=== PATIENT | female | born 1970 | race Caucasian/White ===

== ENCOUNTER 2021-06-18 06:07 | Day surgery (SDC) | payer OTHER ==
--- NOTE | 2021-06-14 12:21 | RAD REPORT ---
EXAM DESCRIPTION: RAD - Chest Pa And Lat (2 Views) - 06/14/2021 12:16 pm CLINICAL HISTORY: PREOP, SAME DAY SURGERY COMPARISON: No comparisons FINDINGS: Lines: None. Lungs: No evidence of edema or pneumonia. Pleural: No significant pleural effusions or pneumothorax. Cardiac: The heart size is within normal limits. Bones: No acute fractures. Other: IMPRESSION: No acute cardiopulmonary disease.
[2021-06-14 12:37] LABS: Basophils % 1.2 % (0-1.3); Hematocrit 39.4 % (36.0-45.0); Lymphocytes % 24.9 % (15.3-44.8); MPV 6.4 fL (7.6-11.3); RBC Red Blood Cell Count 4.63 M/uL (3.86-4.86)
[2021-06-14 12:38] LABS: Protime INR 1.06
[2021-06-14 12:45] LABS: Potassium 3.8 mmol/L (3.5-5.1)
[2021-06-18] MEDS ORDERED: CEFAZOLIN/NS 1gm 1 GM/50 ML BAG ONE (06:21)
[2021-06-18] MEDS ORDERED: NA CHLORIDE 0.9% 1,000 ML ONE ×2 (06:21→09:05)
[2021-06-18] MEDS ORDERED: dexAMETHasone 10 MG/ML VIAL ONE ×2 (06:26→08:38)
[2021-06-18] MEDS ORDERED: EPINEPHRINE/PF 1 MG/ML AMP ONE (06:26)
[2021-06-18] MEDS ORDERED: ROCURONIUM 50 MG/5 ML VIAL IV ONE (06:26)
[2021-06-18] MEDS ORDERED: LIDOCAINE 2% MPF 5 ML VIAL ONE (06:26)
[2021-06-18] MEDS ORDERED: propofoL 200 MG/20 ML VIAL IV ONE (06:26)
[2021-06-18] MEDS ORDERED: KETOROLAC 30 MG/ML INJ ONE (06:26)
[2021-06-18] MEDS ORDERED: ONDANSETRON 4 MG/2 ML VIAL ONE ×2 (06:28→10:52)
[2021-06-18] MEDS ORDERED: NS 0.9% VIAL 10 ML ONE ×2 (08:38→08:42)
[2021-06-18] MEDS ORDERED: ROPLVACAINE HCL 40 ML ONE (08:38)
[2021-06-18] MEDS ORDERED: LIDOCAINE 1% MPF 5 ML VIAL ONE (08:38)
[2021-06-18] MEDS ORDERED: MIDAZOLAM HCL 2 MG/2 ML INJ ONE (08:38)
[2021-06-18] MEDS ORDERED: FENTANYL CITR 100 MCG/2 ML ONE (08:38)
[2021-06-18] MEDS ORDERED: Phenylephrine HCl 10 MG/ML 1 ML VIAL ONE (08:42)
[2021-06-18] MEDS ORDERED: GLYCOPYRROLATE 0.2 MG/ML SYR ONE (09:19)
[2021-06-18] MEDS ORDERED: NEOSTIGMINE 1 MG/ML -5 ML ONE (09:19)
--- NOTE | 2021-06-18 09:48 | P.BOP ---
Preoperative diagnosis: left shoulder adhesive capsulitis, rotator cuff tear, impingement syndrome Postoperative diagnosis: same Primary procedure: left shoulder arthroscopic rotator cuff repair, subacromial decompression Secondary procedure: left shoulder manipulation of anesthesia Other procedure(s): left shoulder arthroscopic lysis of adhesions Estimated blood loss: 5 cc Specimen: none Findings: see dictation Anesthesia: General Complications: None Implants: suture tape with 4.75 mm Arthrex swivelock Fluids & blood products: per anesthesia record Transferred to: Recovery Room Condition: Good
--- NOTE | 2021-06-18 10:41 | RAD REPORT ---
EXAM DESCRIPTION: RAD - Shoulder 1 View - 06/18/2021 10:30 am CLINICAL HISTORY: s/p rotator cuff repair COMPARISON: Shoulder Left Wo Cont dated 05/04/2021 FINDINGS/IMPRESSION: Single view submitted following rotator cuff repair. No dislocation is apparent . No fracture is seen.
[2021-06-18] MEDS ORDERED: HYDROCODONE/APAP 7.5/325 MG TAB ONE (10:44)
[2021-06-18 11:06] VITALS: BP 124/70; TEMP 96.8; O2SAT 100
--- NOTE | 2021-06-19 04:32 | OP ---
Date of Procedure: 06/18/2021 Surgeon: John Zaragoza MD Preoperative Diagnoses: 1.Left shoulder adhesive capsulitis. 2.Left shoulder rotator cuff tear. 3.Left shoulder impingement syndrome. Postoperative Diagnoses: 1.Left shoulder adhesive capsulitis. 2.Left shoulder rotator cuff tear. 3.Left shoulder impingement syndrome. Procedures Performed: 1.Left shoulder arthroscopic rotator cuff repair. 2.Left shoulder manipulation under anesthesia with lysis of adhesions. 3.Left shoulder arthroscopic lysis of adhesions. 4.Left shoulder arthroscopic subacromial decompression. Anesthesia: General endotracheal. Fluids: Per Anesthesia record. Estimated Blood Loss: 5 cc. Implants: One 4.75 mm Arthrex SwiveLock and one FiberTape. Indication For Procedure: Gregg is a 50-year-old female presented to my clinic with signs and symp toms, as well as MRI findings consistent with adhesive capsulitis and a full-thickness rotator cuff t ear. The patient failed conservative treatment measures including corticosteroid injection, as well as home exercise program. I discussed with the patient at length, risks and benefits associated with operative and nonoperative treatment. Given her full-thickness tear as well as her failure of conse rvative treatment. We did elect to proceed with operative treatment. Description Of Procedure: After informed consent was obtained, the patient was identified in the pre operative holding area. The left upper extremity was marked. The patient was brought back to the [facility] where she given an interscalene block performed by Anesthesia to the left upper extremity. She wa s then taken back to the operating room, transferred to the operating table in supine fashion and quita daniel under general endotracheal anesthesia. She was then placed in the beach chair position with her extremities well padded. The left upper extremity was then examined, the patient had forward flexion and abduction to 90 degrees. Gentle manipulation under anesthesia was then performed by stabilizing the scapula with my left hand and gently manipulating the right upper extremity by grabbing just pro ximal to the elbow and again with forward flexion followed by abduction and external rotation. Prior to the manipulation, her range of motion was 90 degrees of forward flexion and abduction as well as 30 degrees of external rotation of manipulation. She was able to get to 130 degrees of forward flexi on as well as abduction as well as 50 degrees of external rotation. The left upper extremity was the n prepped and draped in usual sterile fashion. A time-out was initiated. Again, procedure were conf irmed and identified the patient; however, had received preoperative prophylactic antibiotics. A spi nal needle was then introduced into the glenohumeral joint via the posterior portal position and then joint was injected with 30 cc of normal saline to distend the capsule. A stab incision was made pos teriorly to create a posterior portal. Under direct visualization, an anterior portal and anterior c annula were placed. The patient was noted to have no significant chondromalacia changes noted to the glenoid surface or half humeral head. There was no significant anterior-posterior labral tear. The re was no SLAP tear noted. The biceps tendon anchor was also found to be devoid of any significant t ear and fraying. The patient was noted to have definitely a tight joint. Using the anterior portal and cannula, a rotator interval was then debrided using an arthroscopic shaver as well as the radiofr equency ablator. Anterior inferior capsule was then released using a radiofrequency ablator as well as arthroscopic shaver. It was definitely noted to be from expansion of the joint after these releas es were completed. Undersurface of the rotator cuff was found to be some fraying anteriorly, which w as debrided using the arthroscopic shaver. The arthroscope was then brought up to the bursal surface . The subacromial bursectomy was performed. A full-thickness anterior rotator cuff tear was noted. There was some fraying of the coracoacromial ligament also noted. A FiberTape was then used and pas sed in an inverted horizontal mattress fashion within the anterior rotator cuff tear and reduced the greater tuberosity, which had been debrided to bleeding bony bed. A single 4.75 mm Arthrex SwiveLock was then used to help reduce the rotator cuff tear and fix it anteriorly. The remaining suture was then tucked. Given the fraying of the coracoacromial ligament, a subacromial decompression was perfo rmed by performing an acromioplasty using arthroscopic terrell and using a radiofrequency ablator to aline ride the undersurface of the acromion. The arthroscopic instruments were then removed without compli cation. The wounds were then irrigated with normal saline. Portals were approximated using a 3-0 Mo nocryl. Sterile dressings were applied. Patient was placed in a shoulder immobilizer, awakened, and transferred to PACU in stable condition. Postoperative Plan: She will begin physical therapy 1 to 2 weeks per medium rotator cuff repair prot ocol. CV/MODL Voice ID: [id number] Report ID: [id number]
== END 2021-06-18 11:34 | disposition home or self-care (01) ==
LOC: OR 06:07
PROVIDERS: ATTEND Orthopaedic Surgery Sports Medicine
PROC: 0LM24ZZ Reattachment of Left Shoulder Tendon, Percutaneous Endoscopic Approach (ICD-10-PCS; 2021-06-18)
PROC: 0RNK4ZZ Release Left Shoulder Joint, Percutaneous Endoscopic Approach (ICD-10-PCS; principal; 2021-06-18 07:30)
DX: M75.02 Adhesive capsulitis of left shoulder (principal); M75.122 Complete rotator cuff tear or rupture of left shoulder, not specified as traumatic; M75.22 Bicipital tendinitis, left shoulder; M75.42 Impingement syndrome of left shoulder; M25.512 Pain in left shoulder; Z20.822 Contact with and (suspected) exposure to COVID-19
CPT/HCPCS: 93005; 85025; 80048; 36415; 85610; 82947; 85730; 71046; 73020; 29826; 29827; U0002; J2704; J0171; J2370; J2250; J3010; J1100 ×2; J2795; J2710; J0690; J7030 ×2; J2405 ×2

== ENCOUNTER 2021-07-08 07:06 | Day surgery (SDC) | payer OTHER ==
[2021-07-06 10:39] LABS: Absolute Lymphocytes (CBC) 1.4 K/uL (0.7-4.9); Basophils % 1.2 % (0-1.3); Hematocrit 38.4 % (36.0-45.0); Lymphocytes % 21.8 % (15.3-44.8); MPV 6.3 fL (7.6-11.3); RBC Red Blood Cell Count 4.48 M/uL (3.86-4.86)
[2021-07-06 10:42] LABS: Urine Appearance CLEAR (Clear); Urine Bilirubin NEGATIVE (Negative); Urine Blood TRACE (Negative); Urine Color YELLOW (Yellow); Urine Glucose NEGATIVE (Negative); Urine Protein NEGATIVE (Negative); Urine Urobilinogen 0.2 mg/dL (0.2-1.0); Urine pH 5.5 (5.0-7.0)
[2021-07-06 10:49] LABS: Urine Microscopic Reflex NO UMIC
[2021-07-06 11:00] LABS: Protime INR 0.94
[2021-07-08] MEDS ORDERED: MIDAZOLAM HCL 2 MG/2 ML INJ ONE (07:21)
[2021-07-08] MEDS ORDERED: FENTANYL CITR 250 MCG/5 ML ONE ×2 (07:21→11:20)
[2021-07-08] MEDS ORDERED: NS 0.9% VIAL 10 ML ONE (07:21)
[2021-07-08] MEDS ORDERED: ONDANSETRON 4 MG/2 ML VIAL ONE ×2 (07:21→14:17)
[2021-07-08] MEDS ORDERED: dexAMETHasone 10 MG/ML VIAL ONE (07:21)
[2021-07-08] MEDS ORDERED: propofoL 200 MG/20 ML VIAL IV ONE (07:21)
[2021-07-08] MEDS ORDERED: KETAMINE HCL 500 MG/5 ML VIAL ONE (07:21)
[2021-07-08] MEDS ORDERED: LIDOCAINE 2% MPF 5 ML VIAL ONE (07:21)
[2021-07-08] MEDS ORDERED: ROCURONIUM 50 MG/5 ML VIAL IV ONE (07:21)
[2021-07-08] MEDS ORDERED: SCOPOLAMINE HYDROBROMIDE PATCH TD ONE ×2 (07:30→07:45)
[2021-07-08] MEDS ORDERED: ACETAMINOPHEN 500 MG TAB ONE (08:00)
[2021-07-08] MEDS ORDERED: CELECOXIB 100 MG CAPSULE PO ONE (08:00)
[2021-07-08] MEDS ORDERED: CELECOXIB 100 MG CAPSULE ONE (08:00)
[2021-07-08] MEDS ORDERED: ACETAMINOPHEN 500 MG TAB PO ONE (08:00)
[2021-07-08] MEDS: CEFAZOLIN/SWI 2gm 2 GM/20 ML SYR ONE ×2 (08:11→08:45)
[2021-07-08] MEDS ORDERED: BUPIVACAINE 0.25% PF 10 ML VIAL ONE (08:19)
[2021-07-08] MEDS ORDERED: NA CHLORIDE 0.9% 100 ML IV ONE (08:19)
[2021-07-08] MEDS ORDERED: VASOPRESSIN 20 UNIT/ML VIAL ONE (08:20)
[2021-07-08] MEDS ORDERED: BUPIVACAINE 0.5% Inj,MDV 50 mL VIAL ONE (08:20)
[2021-07-08] MEDS ORDERED: EPHEDRINE SULF 50 MG/ML VIAL ONE (08:50)
[2021-07-08] MEDS: BUPIVACAINE 0.25% PF 10 ML VIAL ONE ×2 (09:30→12:22)
[2021-07-08] MEDS ORDERED: NA CHLORIDE 0.9% 1,000 ML ONE ×2 (09:43→12:10)
[2021-07-08] MEDS: NA CHLORIDE 0.9% 1,000 ML ONE ×2 (09:43→09:50)
[2021-07-08] MEDS ORDERED: CEFAZOLIN SODIUM 1 GM/VIAL ONE (10:27)
[2021-07-08] MEDS ORDERED: HOME MED 1 EA UNK (Estradiol [Estradiol] 42.5 GM Cream.Appl) VG SCH (13:30)
[2021-07-08] MEDS ORDERED: MEPERIDINE HCL 25 MG/ML SYR IM PRN (13:30)
[2021-07-08] MEDS ORDERED: HYDROCODONE/APAP 5/325 MG TAB PO PRN (13:30)
[2021-07-08] MEDS ORDERED: PROMETHAZINE INJ 25 MG/ML AMP IV PRN (13:30)
[2021-07-08] MEDS ORDERED: IBUPROFEN 200 MG TAB PO PRN (13:30)
--- NOTE | 2021-07-08 13:38 | P.BOP ---
Preoperative diagnosis: anterior, vault and posterior wall prolapse stage 2, SERAFIN Postoperative diagnosis: same Primary procedure: Lapsc BSO, MUS-TO cysto, USLS colpopexy,post repair perienorrhaphy Secondary procedure: JULIAN sigmoid Supervisor Mixing: PANFILO BUCKLEY Estimated blood loss: 100, UO 300 Specimen: bilateral tubes and ovaries Findings: sigmoid+bladder adhesions, goretex x2,PDS x2,one on each USL Anesthesia: General Complications: None Drain(s): Urinary catheter Implants: TVT-O Transferred to: Recovery Room Condition: Good
[2021-07-08] MEDS: HYDROMORPHONE HCL 1 MG/ML INJ ONE ×2 (14:00→14:07)
[2021-07-08] MEDS ORDERED: KETOROLAC 30 MG/ML INJ IV ONE (14:14)
[2021-07-08] MEDS ORDERED: KETOROLAC 30 MG/ML INJ ONE (14:16)
[2021-07-08 15:00] VITALS: TEMP 97.1; O2SAT 99
[2021-07-08] MEDS ORDERED: HYDROCODONE/APAP 5/325 MG TAB ONE (16:04)
[2021-07-08 16:43] VITALS: BP 124/64
[2021-07-08] MEDS ORDERED: HOME MED 1 EA UNK (Fluticasone/Salmeterol [Advair Hfa 115-21 Mcg Inhaler] 12 GM Hfa.Aer.Ad IH SCH (21:00)
[2021-07-09] MEDS ORDERED: lisinopriL 10 MG TAB PO SCH (09:00)
[2021-07-09] MEDS ORDERED: MONTELUKAST 10 MG TAB PO SCH (09:00)
[2021-07-09] MEDS ORDERED: HOME MED 1 EA UNK (Cholecalciferol (Vitamin D3) [Vitamin D3] 1,000 UNIT Capsule) PO SCH (09:00)
[2021-07-09] MEDS ORDERED: ESCITALOPRAM 20 MG TAB PO SCH (09:00)
--- NOTE | 2021-07-12 11:33 | OP ---
Date of Procedure: 07/08/2021 Surgeon: Char Valdez MD Communications Manager: Sharla Heaton. Preoperative Diagnoses: Anterior wall to posterior wall prolapse stage II and stress urinary inconti nence and adhesions of the omentum to the anterior abdominal wall, and sigmoid colon to both lateral jay as well as the vaginal cuff. Postoperative Diagnoses: Anterior wall to posterior wall prolapse stage II and stress urinary incont inence and adhesions of the omentum to the anterior abdominal wall, and sigmoid colon to both lateral jay as well as the vaginal cuff. Procedures Performed: Laparoscopy, bilateral salpingo-oophorectomy, uterosacral ligament colpopexy, lysis of adhesions of the anterior abdominal wall and omentum and mid urethral sling posterior repair , perineorrhaphy, posterior repair with site-specific defect repair and cystoscopy. Ebl: 100. Urine Output: 300. Anesthesia: General endotracheal. Specimens: Bilateral tubes and ovaries. Complications: No complications. Drains: Mcdaniels catheter to be removed in 2 hours. Implants: TVTO. Disposition: Recovery room. Specimens: Bilateral tubes and ovaries. Findings: Sigmoid and bladder adhesions were seen. Sigmoid to the lateral jay on the cuff, bladde r adhesions as well. Round ligaments were stitched to the top of the fundus good extent and the way that repair was done there were 2 Table Rock-Davy sutures placed on the distal uterosacral to the lateral mo st aspect of the cuff and then more proximal uterosacral suspension stitch with attached t o the vaginal cuff medial to the prior stitch. Two sutures on each side were done. No need for any culdoplasty. Posterior repair was done in a site-specific fashion and sling was placed without problems and cystos copy was negative. The strong jets of urine from both ureteric orifices. Indications: The patient presented with significant prolapse symptoms and mixed incontinence. After full evaluation as an outpatient, she declined any surgical management, any pessary management, want ed surgical management. Discussed all the options including sacropexy, laparoscopic uterosacral liga ment suspension colpopexy, vaginal colpopexy if sacrospinous colpopexy is not feasible. The patient fully understood the process, understood the removal of ovaries and tubes as well as . Procedure In Detail: The patient was consented and taken back to OR. 2 g of Ancef were given. SCDs were placed and placed in supine fashion on the operative table. General anesthesia was given. Perla daniel in a dorsal lithotomy position using Matthew stirrups and arms tucked by the side. Abdomen, vulva, vagina and perineum prepped and draped in a sterile fashion. Mcdaniels was placed to drain the bladder and sponge on a stick was placed in the vagina. 1 cm infraumbilical incision was made with a scalpel using the open laparoscopy technique. Fascia wa s incised, tagged, peritoneum entered sharply and Sofia introduced without any problems. After adeq uate insufflation, upper abdominal surfaces were unremarkable. Lower abdominal surface with adhesion s as described above. Plan was to perform the lysis of adhesions and take the tubes and ovaries out, and did the colpopexy. On visualization with the help of a Sizer, there was excellent opportunity t o visualize both uterosacral ligaments and seemed to have good traction, so sutures were t o be placed. Omental adhesions were taken down from the side wall cuff carefully preserving the lateral wall sugge sting pericolonic fat down. This took about 30 minutes. The broad ligament was opened lateral to the IP. IP was then and cut. Then dissection was carried to remove rest of the ovary to the side attachment first on the left and then on the right. Once all these were excellent and hemostatic, the attention was directed to developing bladder plane . The peritoneum was incised. Then, the bladder was dissected superiorly at least 3 cm above the ve sicovaginal space, pushing the bladder up and the vagina down through the avascular. Once this was d one, then laterally all the incisions were removed with the help of sharp scissors and posteriorly si milar dissection was attempted to perform, but there was very adherent peritoneum, so plan to start w ith her uterosacral sutures. 3-0 Monocryl was placed as stay sutures. Stay suture on the distal uterosacral to make it more promi nent. Then, Table Rock-Davy suture on suture needle was taken and passed from medial to lateral, lateral to medial and then posterior cuff. The posterior vaginal wall and the anterior fascia of the anterior vaginal wall. Once the Table Rock-Davy suture on the left most end was placed, then the PDS suture was plac ed more proximally to the prior stitch and then placed through the same layer. Similar dissection wa s performed on the right side as well without any problem ureter. Once these were both pe rformed and all the sutures were tied down systematically, pelvic assessment was performed to look fo r prolapse and prolapse was completely resolved on the anterior compartment. Once this was done, perla n was to do a cystoscopy. 17-Israeli sheath, 30-degree lens, normal saline were used. Excellent jets of urine from b oth ureteric orifices. No evidence of any trauma to the bladder. Entire bladder was examined. Area above the dome, trigone and lateral jay were all visualized. Left bladder was drained and Mcdaniels was replaced. Next, the trocars were removed under direct vision after thorough irrigation and suction was performed. Umbilical fascia incision was closed with the h elp of 3-0 Vicryl, tag sutures tied to each other and simple 0 Vicryl stitch in the suprapubic area. Then, all trocars were removed without any problems. Incision was closed with 3-0 chromic in an int errupted fashion. Then attention was directed to the sling. Mid urethral area was picked up with 2 Allis clamps, injec presley with dilute vasopressin. A 1 cm incision was made in the mid urethral area. Then, the tract was created at 40 degrees angle to the horizontal and vertical planes hugging the inferior pubic ramus a nd entering the obturator fascia, then pulling back to expand the tract. Both sides were done in a s imilar way. Then finger was placed and the plastic sheath was guided. After both the plastic sheath s were placed and the spikes exited at the point marked as per instructions, then plastic sheaths wer e cut out, mesh was tensioned in the mid urethral area with the help of Metzenbaum scissors. Once th e sheaths were pulled out, there was adequate tensioning. Thorough irrigation and suction loose and not too tight. After thorough irrigation with antibiotic solution, incision was closed with the help of continuous r unning 3-0 Vicryl. No exposure. No palpable mesh. The adductor tendon was not affected on both sides and skin glue was placed. After assessment of the posterior wall, there was a very visible site-specific defect on the right di stal lateral wall, so plan was to denude the epithelium in the lower 1/2 in the bishop-shaped fashio n and then raised the flaps to dissect out the connective tissue layer and fine both disrupted ends a nd were sutured together. Dilute vasopressin was injected and bishop-shaped incision was made with the help of scalpel and epi thelium excised. Then flaps were raised on both sides on its superior and inferior aspects above and almost to the cuff about 3 more centimeters. Then laterally dissection was performed to open up the lateral attachments, and once this was done, the site specific defect was seen. The perineum was al so opened up and deepithelialized and the muscles were also cut and exposed so that they c ould be reattached. Once this was done, 2-0 PDS was used to continuously run in a downward fashion on the fascia reattach ing to the lateral attachment, and once I came at the perineal body, 2-0 Vicryl sutures were placed. The stitch was attached to the perineal body and ran back up and cut . Then, 0.5 cm of vaginal epithelial entering was done and closure with 2-0 Vicryl was done. Then, at the perineum a bishpo-shaped incision was made after dilute vasopressin was injected. The perine al body was dissected laterally. I had posterior connective tissue with the perineal body . Therefore, this was accomplished with interrupted 2-0 Vicryl sutures x3 and the epithelium was bro ught back together with the help of a continuous running 3-0 Vicryl in a subcutaneous and then subcut icular fashion to close. Rectal exam negative. No foreign body or injury to the rectum. Instrument , needle, and sponge counts were correct. Mcdaniels was left in place for a voiding trial in 2 hours. T he patient was recovered from anesthesia and taken to PACU in stable condition. Ebl: 100. Urine Output: 1. Cystoscopy was performed at the sling and no evidence of any perforation of the mesh. SK/MODL Voice ID: [id number] Report ID: [id number]
== END 2021-07-08 16:30 | disposition home or self-care (01) ==
LOC: OR 07:06
PROVIDERS: ATTEND Obstetrics & Gynecology
PROC: 0UT74ZZ Resection of Bilateral Fallopian Tubes, Percutaneous Endoscopic Approach (ICD-10-PCS; 2021-07-08)
PROC: 0JQC0ZZ Repair Pelvic Region Subcutaneous Tissue and Fascia, Open Approach (ICD-10-PCS; 2021-07-08)
PROC: 0JQC0ZZ Repair Pelvic Region Subcutaneous Tissue and Fascia, Open Approach (ICD-10-PCS; 2021-07-08)
PROC: 0HQ9XZZ Repair Perineum Skin, External Approach (ICD-10-PCS; 2021-07-08)
PROC: 0DNU4ZZ Release Omentum, Percutaneous Endoscopic Approach (ICD-10-PCS; 2021-07-08)
PROC: 0UT24ZZ Resection of Bilateral Ovaries, Percutaneous Endoscopic Approach (ICD-10-PCS; principal; 2021-07-08 08:30)
DX: N81.2 Incomplete uterovaginal prolapse (principal); N39.3 Stress incontinence (female) (male); K66.0 Peritoneal adhesions (postprocedural) (postinfection)
CPT/HCPCS: 85025; 80048; 36415; 86900; 86850; 85610; 86901; 82947 ×2; 88305; 85730; 81003; 58661; 57288; 57260; 49329; U0003; J2704; J2250; J3010 ×2; J1100; J1170; J0690 ×2; J7030 ×3; J2405 ×2; 88302

== ENCOUNTER 2023-03-18 09:54 | Emergency (ER) | payer OTHER ==
--- OUTSIDE RECORDS SUMMARY | 2023-03-18 09:59 | XMS REPORT | Continuity of Care Document ---
:1970 Author Organization [facility] t Address [address] [facility] [address] [place] [address] Care Team Providers Name Role Phone Mara Palacio Attending Clinician Unavailable Mara Palacio Admitting Clinician Unavailable Problems This patient has no known problems. Allergies, Adverse Reactions, Alerts This patient has no known allergies or adverse reactions. Medications This patient has no known medications. Procedures This patient has no known procedures. Encounters Start End Encounter Admission Attending Care Care Encounter Source Date/Time Date/Time Type Type Clinicians Facility Department ID 2023-01-[address] [facility] [id number] Common 13:12:00 Mara [id number] [facility] 2021-08-[address] [facility] [id number] Common 14:24:13 Mara [id number] [facility] Results This patient has no known results.
[2023-03-18 10:26] LABS: Absolute Lymphocytes (CBC) 1.9 K/uL (0.7-4.9); Hematocrit 40.5 % (36.0-45.0); Lymphocytes % 23.5 % (15.3-44.8); MCV 84.1 fL (80-100); MPV 6.2 fL (7.6-11.3); Platelets 431 thou/uL (152-406); RBC Red Blood Cell Count 4.82 M/uL (3.86-4.86)
[2023-03-18] MEDS ORDERED: FAMOTIDINE 20 MG/2 ML VIAL IV ONE (10:28)
[2023-03-18] MEDS ORDERED: Ringers Lactate 1,000 ML IV ONE (10:28)
[2023-03-18] MEDS ORDERED: MAGNES/ALUMIN/SIMET 30ML UCUP ONE (10:28)
[2023-03-18] MEDS ORDERED: ASPIRIN 81 MG CHEWABLE TABLET ONE (10:28)
[2023-03-18] MEDS ORDERED: lisinopriL 20 MG TAB ONE (10:28)
[2023-03-18 10:39] LABS: Protime INR 0.97
[2023-03-18 10:47] LABS: Albumin 4.1 g/dL (3.4-5.0); Bilirubin Direct 0.1 mg/dL (0-0.2); Bilirubin Indirect, Calculated 0.2 mg/dL (0.2-0.8); Bilirubin Total 0.3 mg/dL (0.2-1.0); Potassium 3.7 mEq/L (3.5-5.1)
--- NOTE | 2023-03-18 10:59 | RAD REPORT ---
EXAM DESCRIPTION: Avanit Single View03/18/2023 10:52 am CLINICAL HISTORY: CHEST PAIN COMPARISON: Chest Pa And Lat (2 Views) dated 06/14/2021 TECHNIQUE: Portable AP view of the chest. FINDINGS: The lungs are clear. No pneumothorax or effusion. The cardiomediastinal contours are unrem arkable. IMPRESSION: No acute cardiopulmonary process.
[2023-03-18] MEDS ORDERED: DIAZEPAM 5 MG TABLET ONE (11:28)
--- NOTE | 2023-03-18 13:25 | EDPHYS ---
Physician Documentation [facility] Name: Gregg Huerta Age: 52 yrs Sex: Female : 1970 Arrival Date: 03/18/2023 Time: 09:54 Bed 4 Private MD: ED Physician Feng Dhaliwal HPI: 03/18 10:18 This 52 yrs old Female presents to ER via Ambulatory with complaints of Chest Pain, jr11 Shoulder Pain, Dizziness. 10:18 Patient is a 52-year-old with history of hypertension, has not taken her lisinopril in jr11 the last few weeks for no reason, comes here for chest pain that started last night. Patient reports the chest pain feels like indigestion however this morning it went to her left shoulder. Reports some lightheadedness/dizziness, denies vertigo any focal neurologic deficit. Denies diaphoresis pain does not cross the diaphragm is not described as a tearing pain nonexertional no vomiting.. [employer]: 13:38 LMP N/A - Irregular menses ap3 Historical: - Allergies: 10:08 Levaquin; ap3 - Home Meds: 10:08 Singulair Oral [Active]; paroxetine oral [Active]; ap3 - PMHx: 10:08 Hypertensive disorder; ap3 - PSHx: 10:08 Cholecystectomy; ap3 - Immunization history:: Client reports receiving the 2nd dose of the Covid vaccine. - Social history:: Smoking status: Patient denies any tobacco usage or history of. ROS: 10:18 All other systems are negative. jr11 Exam: 10:18 Constitutional: This is a well developed, well nourished patient who is awake, alert, jr11 and in no acute distress. Head/Face: Normocephalic, atraumatic. Eyes: Extra-ocular motions intact. Lids and lashes normal. Conjunctiva and sclera are non-icteric and not injected. Cornea within normal limits. Periorbital areas with no swelling, redness, or edema. ENT: Nares patent. No nasal discharge, no septal abnormalities noted. Oropharynx with no redness, swelling, or masses, exudates, or evidence of obstruction, uvula midline. Mucous membranes moist. Neck: Trachea midline, no thyromegaly or masses palpated, and no cervical lymphadenopathy. Supple, full range of motion without nuchal rigidity, or vertebral point tenderness. No Meningismus. Chest/axilla: Normal chest wall appearance and motion. Nontender with no deformity. No lesions are appreciated. Cardiovascular: Regular rate and rhythm with a normal S1 and S2. No gallops, murmurs, or rubs. Normal PMI, no JVD. No pulse deficits. Respiratory: Lungs have equal breath sounds bilaterally, clear to auscultation and percussion. No rales, rhonchi or wheezes noted. No increased work of breathing, no retractions or nasal flaring. Abdomen/GI: Soft, non-tender, with normal bowel sounds. No distension or tympany. No guarding or rebound. No evidence of tenderness throughout. Skin: Warm, dry with normal turgor. Normal color with no rashes, no lesions, and no evidence of cellulitis. MS/ Extremity: Pulses equal, no cyanosis. Neurovascular intact. Full, normal range of motion. Neuro: Awake and alert, GCS 15, oriented to person, place, time, and situation. No gross motor or sensory deficits. Vital Signs: 10:10 BP 207 / 86; Pulse 114; Resp 18; Temp 98.5; Pulse Ox 100% ; Weight 68.04 kg; Pain 4/10; ap3 11:13 BP 168 / 85; Pulse 81; ap3 12:24 BP 142 / 83; Pulse 73; Pulse Ox 97% on R/A; ap3 13:14 BP 132 / 82; Pulse 68; Pulse Ox 98% ; ap3 10:10 Pain Scale: Adult ap3 MDM: 10:06 Patient medically screened. jr11 10:18 Differential diagnosis: abnormal EKG, gastritis, gastroesophageal reflux disease jr11 (GERD), peptic ulcer disease, stable angina. Data reviewed: vital signs, nurses notes. 10:28 ED course: EKG interpreted by me shows normal sinus rhythm, tachycardic rate of 92, jr11 normal axis, normal intervals, no acute ST changes. traffic monitor specialist interpreted by me shows normal sinus rhythm rate of 95. 13:23 HEART Score: History: Moderately Suspicious (1), ECG: Normal (0), Age: > 45 and < 65 jr11 years (1), Risk Factors: 1 or 2 risk factors (1), [Hypertension] [Obesity] Troponin: < or = 1 x Normal Limit (0), Total Score = 3. ED course: Patient is a 52-year-old female, heart score less than 3, symptoms resolved with GI cocktail, blood pressure resolved putting her back on her lisinopril. Patient understands that she needs outpatient stress test, will give Dr. Jacob's information ideally this needs to be done within 72 hours. 03/18 10:02 Order name: Basic Metabolic Panel; Complete Time: : 03/18 10:02 Order name: CBC with Diff; Complete Time: 03/18 10:02 Order name: D-Dimer; Complete Time: 03/18 10:02 Order name: LFT's; Complete Time: [facility] 03/18 10:02 Order name: NT PRO-BNP; Complete Time: 03/18 10:02 Order name: PT-INR; Complete Time: 03/18 10:02 Order name: Troponin HS; Complete Time: [facility] 03/18 12:03 Order name: Troponin High Sensitivity; Complete Time: 13:03/18 10:02 Order name: XRAY Chest (1 view); Complete Time: 11:03/18 10:02 Order name: EKG; Complete Time: :03/18 12:03 Order name: EKG; Complete Time: 12:03/18 10:02 Order name: Cardiac monitoring; Complete Time: :03/18 10:02 Order name: EKG - Nurse/Tech; Complete Time: 03/18 10:02 Order name: IV Saline Lock; Complete Time: 03/18 10:02 Order name: Labs collected and sent; Complete Time: :03/18 10:02 Order name: O2 Per Protocol; Complete Time: :03/18 10:02 Order name: O2 Sat Monitoring; Complete Time: : Administered Medications: 10:28 Drug: Lactated Ringers Solution IV 500 ml Route: IV; Rate: 500 ml/hr; Site: right ko1 antecubital; 10:28 Drug: Famotidine IVP 20 mg Route: IVP; Site: right antecubital; ko1 11:22 Follow up: Response: No adverse reaction ap3 10:28 Drug: GI Cocktail with - (Phenobarbital-Belladonna PO 10 ml, Maalox PO ko1 Suspension 30 ml, Lidocaine Mucous Membrane Liquid 2 % 20 ml) Route: PO; 11:22 Follow up: Response: No adverse reaction ap3 10:28 Drug: Lisinopril PO 20 mg Route: PO; ko1 11:22 Follow up: Response: No adverse reaction; Blood pressure is lowered ap3 10:29 Drug: Aspirin PO Chewable Tablet 324 mg Route: PO; ko1 13:37 Follow up: Response: No adverse reaction ap3 11:22 Drug: Diazepam PO 2.5 mg Route: PO; ap3 13:37 Follow up: Response: No adverse reaction ap3 Disposition Summary: 03/18/23 13:25 Discharge Ordered Location: Home jr Condition: Stable jr11 Diagnosis - Chest pain, unspecified jr11 Followup: jr11 - With: Paolo Jacob MD - When: 1 - 2 days - Reason: Continuance of care Discharge Instructions: - Discharge Summary Sheet jr11 - Nonspecific Chest Pain, Adult jr11 Forms: - Medication Reconciliation Form jr11 - Thank You Letter jr11 - Antibiotic Education jr11 - Prescription Opioid Use jr11 - Patient Portal Instructions jr11 - Leadership Thank You Letter jr11 Prescriptions: - Lisinopril 20 mg Oral Tablet - take 1 tablet by ORAL route once daily; 30 tablet; Refills: 0, Product jr11 Selection Permitted Signatures: Dispatcher [employer] EDPooja Trinidad RN RN ap3 Feng Dhaliwal MD MD jr11 Yanira Casas RN RN ko1 Corrections: (The following items were deleted from the chart) : 10:02 [facility].BR[facility] ordered. EDMS EDMS
--- NOTE | 2023-03-18 13:25 | ER ---
Nurse's Notes [facility] Name: Gregg Huerta Age: 52 yrs Sex: Female : 1970 Arrival Date: 03/18/2023 Time: 09:54 Bed 4 Private MD: Diagnosis: Chest pain, unspecified Presentation: 03/18 10:07 Chief complaint: Patient states: she was getting ready for work this morning when she ap3 started having mid back pain, that then radiated to her chest. patient states the pain then began going down her left arm. patient rates pain as a 4/10 on the pain scale at this time. Coronavirus screen: At this time, the client does not indicate any symptoms associated with coronavirus-19. Ebola Screen: No symptoms or risks identified at this time. Risk Assessment: Do you want to hurt yourself or someone else? Patient reports no desire to harm self or others. Onset of symptoms was March 18, 2023. 10:07 Method Of Arrival: Ambulatory ap3 10:10 Initial Sepsis Screen: Does the patient meet any 2 criteria? HR > 90 bpm. Does the ap3 patient have a suspected source of infection? No. Patient's initial sepsis screen is negative. 10:10 Acuity: RAMIRO 2 ap3 Triage Assessment: 10:09 General: Appears in no apparent distress. Behavior is calm, cooperative, appropriate ap3 for age. Pain: Complains of pain in back, chest and left arm. Neuro: Level of Consciousness is awake, alert, obeys commands, Oriented to person, place, time, situation, Appropriate for age. Cardiovascular: Reports chest pain, Patient's skin is warm and dry. Respiratory: Airway is patent Respiratory effort is even, unlabored, Respiratory pattern is regular, symmetrical. SUBSTANCE ABUSE RN: 13:38 LMP N/A - Irregular menses ap3 Historical: - Allergies: 10:08 Levaquin; ap3 - Home Meds: 10:08 Singulair Oral [Active]; paroxetine oral [Active]; ap3 - PMHx: 10:08 Hypertensive disorder; ap3 - PSHx: 10:08 Cholecystectomy; ap3 - Immunization history:: Client reports receiving the 2nd dose of the Covid vaccine. - Social history:: Smoking status: Patient denies any tobacco usage or history of. Screenin:10 [facility] ED Fall Risk Assessment (Adult) History of falling in the last 3 months, ap3 including since admission No falls in past 3 months (0 pts). Abuse screen: Denies threats or abuse. Nutritional screening: No deficits noted. Tuberculosis screening: No symptoms or risk factors identified. Assessment: 10:11 Pain: Pain radiates to back, chest and left arm. ap3 11:38 Reassessment: Patient and/or family updated on plan of care and expected duration. Pain ap3 level reassessed. Patient is alert, oriented x 3, equal unlabored respirations, skin warm/dry/pink. 13:38 Pain: Pain began gradually. ap3 Vital Signs: 10:10 BP 207 / 86; Pulse 114; Resp 18; Temp 98.5; Pulse Ox 100% ; Weight 68.04 kg; Pain 4/10; ap3 11:13 BP 168 / 85; Pulse 81; ap3 12:24 BP 142 / 83; Pulse 73; Pulse Ox 97% on R/A; ap3 13:14 BP 132 / 82; Pulse 68; Pulse Ox 98% ; ap3 10:10 Pain Scale: Adult ap3 ED Course: 09:56 Patient arrived in ED. ts1 10:01 Feng Dhaliwal MD is Attending Physician. jr11 10:07 Pooja Reed, YASMANI is Primary Nurse. ap3 10:10 Triage completed. ap3 10:10 Arm band placed on right wrist. ap3 10:10 Patient has correct armband on for positive identification. Placed in gown. Bed in low ap3 position. Call light in reach. Side rails up X2. media monitor on. Pulse ox on. NIBP on. 10:11 Patient maintains SpO2 saturation greater than 95% on room air. ap3 10:15 Basic Metabolic Panel Sent. ko1 10:15 D-Dimer Sent. ko1 10:15 LFT's Sent. ko1 10:15 NT PRO-BNP Sent. ko1 10:15 PT-INR Sent. ko1 10:15 Troponin HS Sent. ko1 10:18 Initial lab(s) drawn, by ia, sent to lab. Inserted saline lock: 20 gauge in right ap3 antecubital area, using aseptic technique. Blood collected. 10:19 Warm blanket given. Client placed on continuous cardiac and pulse oximetry monitoring. mm9 NIBP monitoring applied. 10:19 EKG done, by ED staff, reviewed by Feng Dhaliwal MD. mm9 10:54 XRAY Chest (1 view) In Process Unspecified. EDMS 11:39 Provided Education on: NA. ko1 12:47 Troponin High Sensitivity Sent. ko1 13:25 Paolo Jacob MD is Referral Physician. jr11 13:37 No provider procedures requiring assistance completed. IV discontinued, intact, ap3 bleeding controlled, No redness/swelling at site. Pressure dressing applied. Administered Medications: 10:28 Drug: Lactated Ringers Solution IV 500 ml Route: IV; Rate: 500 ml/hr; Site: right ko1 antecubital; 10:28 Drug: Famotidine IVP 20 mg Route: IVP; Site: right antecubital; ko1 11:22 Follow up: Response: No adverse reaction ap3 10:28 Drug: GI Cocktail with - (Phenobarbital-Belladonna PO 10 ml, Maalox PO ko1 Suspension 30 ml, Lidocaine Mucous Membrane Liquid 2 % 20 ml) Route: PO; 11:22 Follow up: Response: No adverse reaction ap3 10:28 Drug: Lisinopril PO 20 mg Route: PO; ko1 11:22 Follow up: Response: No adverse reaction; Blood pressure is lowered ap3 10:29 Drug: Aspirin PO Chewable Tablet 324 mg Route: PO; ko1 13:37 Follow up: Response: No adverse reaction ap3 11:22 Drug: Diazepam PO 2.5 mg Route: PO; ap3 13:37 Follow up: Response: No adverse reaction ap3 Medication: 13:38 VIS not applicable for this client. ap3 Outcome: 13:25 Discharge ordered by . jr11 13:37 Discharged to home ambulatory. ap3 13:37 Condition: good 13:37 Discharge instructions given to patient, Instructed on discharge instructions, follow up and referral plans. medication usage, Demonstrated understanding of instructions, follow-up care, medications, Prescriptions given X 1. 13:38 Patient left the ED. ap3 Signatures: Dispatcher [employer] EDMS Pooja Reed RN RN ap3 Feng Dhaliwal MD MD jr11 Yanira Casas RN RN ko1 Laura Grissom mm9 Yareli Lowery PAS PAS ts1 Corrections: (The following items were deleted from the chart) 10:19 10:15 CBC+H.LAB.BRZ drawn and sent. ko1 EDMS
[2023-03-18 14:09] VITALS: TEMP 98.5
[2023-03-18 14:12] VITALS: BP 132/82; O2SAT 98
--- NOTE | 2023-03-20 18:04 | EKG ---
Test Date: 2023-03-18 Test Time: 10:16:07 [employer] Architect: BETH MEASUREMENT RESULTS: Intervals: Rate: 92 NM: 134 QRSD: 74 QT: 354 QTc: 437 [place]: P: 81 NM: 134 QRS: 70 T: 89 INTERPRETIVE STATEMENTS: Normal sinus rhythm Normal ECG Compared to ECG 03/18/2023 10:14:31 ST (T wave) deviation no longer present Electronically Signed On 03-20-23 17:58:30 CDT by Paolo Jacob
== END 2023-03-18 13:38 | disposition home or self-care (01) ==
LOC: ER 09:54
DX: R07.9 Chest pain, unspecified (principal); I10 Essential (primary) hypertension; Z91.148 Patient's other noncompliance with medication regimen for other reason
CPT/HCPCS: 93005 ×2; 85025; 80048; 36415; 85610; 85379; 80076; 84484 ×2; 83880; 71045; 96374; 99285; J7120